=== PATIENT | female | born 1970 | race Caucasian/White ===

== ENCOUNTER 2021-01-26 20:31 | Emergency (ER) | payer BC ==
[~2021-01-26] VITALS: Ht 162.6 cm; Wt 59.0 kg
[2021-01-26] MEDS ORDERED: ZOLOFT50 M1 PO (20:48)
[2021-01-27] MEDS ORDERED: HYDROCODON-ACE1 EAC8 PO (00:19)
[2021-01-27 00:32] VITALS: BP 125/98
== END 2021-01-27 00:32 | disposition home or self-care (01) ==
LOC: M.ERS 20:31
DX: S52.502A Unspecified fracture of the lower end of left radius, initial encounter for closed fracture (principal); Z79.899 Other long term (current) drug therapy; Z88.5 Allergy status to narcotic agent; W01.0XXA Fall on same level from slipping, tripping and stumbling without subsequent striking against object, initial encounter; Y93.89 Activity, other specified; Y92.89 Other specified places as the place of occurrence of the external cause; Y99.8 Other external cause status